=== PATIENT | male | born 1980 | race Caucasian/White ===

== ENCOUNTER 2017-08-11 21:21 | Emergency (ER) | payer OTHER ==
[~2017-08-11] VITALS: Ht 177.8 cm; Wt 74.8 kg
[2017-08-11 22:01] VITALS: BP 135/67
[2017-08-11] MEDS ORDERED: HYDROcodone/APAP 5/325MG 1 TAB TABLET PO ONE (22:30)
[2017-08-11] MEDS ORDERED: DIPHTH,PERTUSS(ACELL),TET TOX 0.5 ML DISP.SYRIN. VAX IM ONE (22:30)
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
[2017-08-11] MEDS ORDERED: ONDA4TAB10 PO (23:13)
[2017-08-11] MEDS ORDERED: HYDR-971 PO (23:13)
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
== END 2017-08-11 23:23 | disposition home or self-care (01) ==
LOC: ER 21:21
DX: S16.1XXA Strain of muscle, fascia and tendon at neck level, initial encounter (principal); S00.83XA Contusion of other part of head, initial encounter; S09.90XA Unspecified injury of head, initial encounter; M25.531 Pain in right wrist; M79.642 Pain in left hand; M79.641 Pain in right hand; M25.512 Pain in left shoulder; V43.52XA Car driver injured in collision with other type car in traffic accident, initial encounter; Y93.I9 Activity, other involving external motion; Y92.410 Unspecified street and highway as the place of occurrence of the external cause; Y99.8 Other external cause status
CPT/HCPCS: 70450; 71010; 72125; 73030; 73110; 73120; 90471; 90715; 99284-25

== ENCOUNTER 2019-07-09 09:18 | Emergency (ER) | payer OTHER ==
[~2019-07-09] VITALS: Ht 177.8 cm; Wt 81.6 kg
[~2019-07-09 09:18] MED LIST: HYDR-3164 PO; ONDA4TAB10 PO
[2019-07-09] MEDS ORDERED: IV NORMAL SALINE 1000ML BAG 1,000 ML IV ONE ×2 (09:30→11:15)
[2019-07-09] MEDS ORDERED: MORPHINE SULFATE 4 MG/ML VIAL. IV ONE (09:45)
[2019-07-09] MEDS ORDERED: ONDANSETRON PF 4 MG/2 ML VIAL. IV ONE (09:45)
[2019-07-09 09:52] LABS: CALCIUM 9.5 mg/dL (8.5-10.1); CREATININE 0.9 mg/dL (0.7-1.3); GFR 95.5
[2019-07-09 09:58] LABS: ALBUMIN 4.4 g/dL (3.4-5.0); ALBUMIN/GLOBULIN RATIO 1.1 (1.0-1.7); TOTAL BILIRUBIN 0.7 mg/dL (0.2-1.0); TOTAL PROTEIN 8.3 g/dL (6.4-8.2)
[2019-07-09] MEDS ORDERED: CONTRAST GIVEN. MC PRN (10:00)
[2019-07-09] MEDS ORDERED: IOHEXOL 300 MG/ML 100ML VIAL. IV ONE (10:00)
[2019-07-09 10:05] LABS: BASO # 0.1 x10^3/uL (0.0-0.2); BASO % 1 % (0-3); EOS # 0.2 x10^3/uL (0.0-0.7); EOS % 2 % (0-3); HEMATOCRIT 45.4 % (39.0-53.0); HEMOGLOBIN 15.5 g/dL (13.0-17.5); LYMPH # 2.8 x10^3/uL (1.0-4.8); LYMPH % 31 % (24-48); MEAN CORPUSCULAR HEMOGLOBIN 31 pg (25-35); MEAN CORPUSCULAR HGB CONC 34 g/dL (31-37); MEAN CORPUSCULAR VOLUME 92 fL (79-100); MONO # 1.1 x10^3/uL (0.0-1.1); MONO % 12 % (0-9); NEUT # 4.9 x10^3/uL (1.8-7.7); NEUT % 55 % (31-73); PLATELET COUNT 214 x10^3/uL (140-400); RED BLOOD COUNT 4.95 x10^6/uL (4.30-5.70); RED CELL DISTRIBUTION WIDTH 13.3 % (11.5-14.5)
--- NOTE | 2019-07-09 10:26 | RAD ---
CT scan of the abdomen and pelvis with contrast 07/09/2019 CLINICAL HISTORY: Right-sided abdominal pain. TECHNIQUE: After the intravenous administration of 75 cc of Omnipaque 300 only, contiguous, 5 mm axial sections were obtained through the abdomen and pelvis. One or more of the following individualized dose reduction techniques were utilized for this study: 1. Automated exposure control. 2. Adjustment of the mA and/or kV according to patient size. 3. Use of iterative reconstruction technique. FINDINGS: Images through the lung bases are within normal limits. The liver, spleen, pancreas, adrenal glands and left kidney are within normal limits. Mild dilatation of the right intrarenal collecting system is seen. The right ureter is mildly dilated throughout its course. Within the distal right ureter projecting medially into the urinary bladder at the level of the right UVJ a 3 mm distal right ureteral calculus is seen. This is causing mild obstruction of the right collecting system. The abdominal aorta tapers normally. The gallbladder is contracted. No free fluid or free air is seen within the abdomen. There is no evidence of bowel obstruction. The appendix is well-visualized and is within normal limits. Images through the pelvis demonstrate the urinary bladder distended with urine. No free fluid is seen. Calcifications are seen within the pelvis consistent with phleboliths. Very mild S-shaped curvature of the thoracolumbar spine is seen. Degenerative changes are seen involving lower thoracic and mid and lower lumbar spine. IMPRESSION: 3 mm distal right ureteral calculus is seen at the right UVJ which is causing mild obstruction of the right collecting system. Electronically signed by: Hunter Cooper MD (07/09/2019 10:23 AM) [facility]
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
[2019-07-09] MEDS ORDERED: KETOROLAC 30 MG/ML VIAL. IV ONE (10:45)
[2019-07-09 12:06] LABS: BACTERIA,URINE 0 /HPF (0-FEW); BILIRUBIN,URINE NEGATIVE (NEG); CLARITY,URINE CLEAR; COLOR,URINE YELLOW; NITRITE,URINE NEGATIVE (NEG); PH,URINE 8.5; PROTEIN,URINE 30 mg/dL (NEG-TRACE); RBC,URINE >40 /HPF (0-2); UROBILINOGEN,URINE 0.2 mg/dL (0.2 mg/dL); WBC,URINE 0 /HPF (0-4)
[2019-07-09] MEDS ORDERED: HYDR-3164 PO (12:58)
[2019-07-09] MEDS ORDERED: TAMS0.4C97 PO (12:58)
[2019-07-09] MEDS ORDERED: IBUP-1060 PO (12:58)
[2019-07-09 13:15] VITALS: BP 118/66
== END 2019-07-09 13:27 | disposition home or self-care (01) ==
LOC: ER 09:18
DX: N20.2 Calculus of kidney with calculus of ureter (principal)
CPT/HCPCS: 36415; 74177; 80053; 81001; 83690; 85025; 96374; 96375; 99285; J1885; J2270; J2405; J7030; Q9967